=== PATIENT | female | born 1930 | race African-American/Black ===

== ENCOUNTER 2017-06-06 03:53 | Inpatient (IN) | payer OTHER ==
[~2017-06-06] VITALS: Ht 152.4 cm; Wt 67.7 kg
[2017-06-06 04:57] LABS: BASOPHIL % 0.2 % (0-2); PLATELET COUNT 308 x10^3mcL (130-400)
[2017-06-06 04:58] LABS: RED CELL DISTRIBUTION WIDTH 17.5 % (11.5-14.5)
[2017-06-06 04:59] LABS: microscopic required? NO
[2017-06-06 05:01] LABS: ALKALINE PHOSPHATASE 80 U/L (46-116); ALT/SGPT 20 U/L (14-59); AST/SGOT 23 U/L (15-37); BILIRUBIN TOTAL 0.4 mg/dL (0.20-1.00); CALCIUM 9.4 mg/dL (8.5-10.1); CARBON DIOXIDE 30.8 mmol/L (21-32); CHLORIDE SERUM 99 mmol/L (98-107); CHOLESTEROL 168 mg/dL (<200); CREATININE SERUM 0.9 mg/dL (0.6-1.0); GLUCOSE SERUM 100 mg/dL (74-106); HDL CHOLESTEROL 40 mg/dL (40-60); SODIUM SERUM 137 mmol/L (136-145); TOTAL PROTEIN, SERUM 7.3 g/dL (6.4-8.2)
[2017-06-06 05:02] LABS: ALBUMIN 2.5 g/dL (3.4-5.0)
[2017-06-06 05:04] LABS: POTASSIUM SERUM 2.8 mmol/L (3.5-5.1)
[2017-06-06 05:25] LABS: UA SPECIFIC GRAVITY 1.015 (1.005-1.035); urine erythrocyte NEGATIVE (NEGATIVE)
[2017-06-06] MEDS ORDERED: ALBUTEROL SULFAT2 MG PO (06:27)
[2017-06-06] MEDS ORDERED: ALLOPURINOL100 MG PO (06:28)
[2017-06-06] MEDS ORDERED: ALPOS OD (06:29)
[2017-06-06] MEDS ORDERED: ALPRAZOLAM0.25 MG PO (06:31)
[2017-06-06] MEDS ORDERED: ADULT LOW DOSE81 MG PO (06:31)
[2017-06-06] MEDS ORDERED: ATENOLOL25 MG PO (06:31)
[2017-06-06] MEDS ORDERED: DIGOXIN0.125 M1 PO (06:32)
[2017-06-06] MEDS ORDERED: DILTIAZEM HCL30 MG PO (06:33)
[2017-06-06] MEDS ORDERED: PEPCID20 MG PO (06:33)
[2017-06-06] MEDS ORDERED: FUROSEMIDE40 MG PO (06:34)
[2017-06-06] MEDS ORDERED: ISO300 PO (06:34)
[2017-06-06] MEDS ORDERED: MECLIZINE HYDRO25 M1 PO (06:35)
[2017-06-06] MEDS ORDERED: LIDODERM51 TOP (06:35)
[2017-06-06] MEDS ORDERED: VITAMIN B-650 M2 PO (06:36)
[2017-06-06] MEDS ORDERED: METOPROLOL TART25 M1 PO (06:36)
[2017-06-06] MEDS ORDERED: SYMBICORT1 AE3 INH (06:37)
[2017-06-06 07:42] LABS: CHOLESTEROL/HDL RATIO 4.5; MAGNESIUM 1.3 mg/dL (1.8-2.4); PHOSPHOROUS 3.6 mg/dL (2.5-4.9)
[2017-06-06 07:53] LABS: FREE T4 1.33 ng/dL (0.76-1.46); FREE THYROXINE INDEX 3.3 ug/dL (1.4-4.5); T4(THYROXINE) 8.9 ug/dL (4.7-13.3)
[2017-06-06 07:58] LABS: T3 TOTAL 1.14 ng/mL
[2017-06-06 14:28] VITALS: Ht 152.4 cm; Wt 67.7 kg
[2017-06-06 18:11] VITALS: BP 159/50
[2017-06-06 21:42] VITALS: BP 144/56
[2017-06-07 06:14] VITALS: BP 135/62
[2017-06-07 06:27] LABS: BASOPHIL % 0.4 % (0-2); PLATELET COUNT 287 x10^3mcL (130-400)
[2017-06-07 07:18] LABS: CALCIUM 8.9 mg/dL (8.5-10.1); CARBON DIOXIDE 28.1 mmol/L (21-32); CHLORIDE SERUM 101 mmol/L (98-107); CREATININE SERUM 0.7 mg/dL (0.6-1.0); GLUCOSE SERUM 84 mg/dL (74-106); PHOSPHOROUS 3.2 mg/dL (2.5-4.9); POTASSIUM SERUM 3.1 mmol/L (3.5-5.1); SODIUM SERUM 139 mmol/L (136-145)
[2017-06-07 07:54] LABS: RED CELL DISTRIBUTION WIDTH 17.6 % (11.5-14.5)
[2017-06-07 08:53] VITALS: BP 171/54
[2017-06-07 09:46] VITALS: BP 108/78
[2017-06-07 13:55] VITALS: BP 157/58
[2017-06-07 18:00] VITALS: BP 158/53
[2017-06-08 05:32] VITALS: BP 177/59
[2017-06-08 06:12] VITALS: BP 135/60
[2017-06-08 06:26] LABS: CALCIUM 8.7 mg/dL (8.5-10.1); CARBON DIOXIDE 28.5 mmol/L (21-32); CHLORIDE SERUM 102 mmol/L (98-107); CREATININE SERUM 0.7 mg/dL (0.6-1.0); GLUCOSE SERUM 85 mg/dL (74-106); MAGNESIUM 1.5 mg/dL (1.8-2.4); PHOSPHOROUS 2.9 mg/dL (2.5-4.9); POTASSIUM SERUM 3.1 mmol/L (3.5-5.1); SODIUM SERUM 139 mmol/L (136-145)
[2017-06-08 06:48] LABS: BASOPHIL % 0.3 % (0-2); PLATELET COUNT 281 x10^3mcL (130-400)
[2017-06-08 06:53] LABS: RED CELL DISTRIBUTION WIDTH 17.7 % (11.5-14.5)
[2017-06-08 09:39] VITALS: BP 163/57
[2017-06-08 12:49] VITALS: BP 151/55
[2017-06-08 15:17] LABS: RED BLOOD CELLS 3.36 M/mm3 (4.10-5.10)
[2017-06-08 15:36] LABS: IRON 26 ug/dL (50-170); TOTAL IRON BINDING CAPACITY 128 ug/dL (250-450)
[2017-06-08 17:07] VITALS: BP 151/49
[2017-06-08 21:00] VITALS: BP 155/47
[2017-06-09 05:46] VITALS: BP 161/58
[2017-06-09 06:30] LABS: CALCIUM 8.9 mg/dL (8.5-10.1); CARBON DIOXIDE 30.6 mmol/L (21-32); CHLORIDE SERUM 101 mmol/L (98-107); CREATININE SERUM 0.7 mg/dL (0.6-1.0); GLUCOSE SERUM 95 mg/dL (74-106); MAGNESIUM 1.6 mg/dL (1.8-2.4); PHOSPHOROUS 2.4 mg/dL (2.5-4.9); POTASSIUM SERUM 3.1 mmol/L (3.5-5.1); SODIUM SERUM 137 mmol/L (136-145)
[2017-06-09 07:27] LABS: BASOPHIL % 0.3 % (0-2); PLATELET COUNT 286 x10^3mcL (130-400)
[2017-06-09 07:28] LABS: RED CELL DISTRIBUTION WIDTH 17.4 % (11.5-14.5)
[2017-06-09 10:20] VITALS: BP 152/47
[2017-06-09 12:46] VITALS: BP 144/52
[2017-06-09 13:02] VITALS: BP 144/52
[2017-06-09] MEDS ORDERED: LEVOFLOXACIN500 M1 PO (15:28)
[2017-06-09] MEDS ORDERED: FER300 PO (15:33)
[2017-06-09] MEDS ORDERED: LAC PO (15:39)
[2017-06-09 16:02] LABS: CALCIUM 9.1 mg/dL (8.5-10.1); CARBON DIOXIDE 28.5 mmol/L (21-32); CHLORIDE SERUM 100 mmol/L (98-107); CREATININE SERUM 0.8 mg/dL (0.6-1.0); GLUCOSE SERUM 124 mg/dL (74-106); POTASSIUM SERUM 3.5 mmol/L (3.5-5.1); SODIUM SERUM 136 mmol/L (136-145)
== END 2017-06-09 17:05 | DRG 177 ==
LOC: ED 03:53 → DU 05:58
PROVIDERS: Emergency Medicine; ADMIT Family Medicine
DX: J69.0 Pneumonitis due to inhalation of food and vomit (principal); G93.41 Metabolic encephalopathy; E43 Unspecified severe protein-calorie malnutrition; J44.1 Chronic obstructive pulmonary disease with (acute) exacerbation; D68.69 Other thrombophilia; E87.6 Hypokalemia; E11.65 Type 2 diabetes mellitus with hyperglycemia; E11.51 Type 2 diabetes mellitus with diabetic peripheral angiopathy without gangrene; E83.42 Hypomagnesemia; E83.39 Other disorders of phosphorus metabolism; E04.1 Nontoxic single thyroid nodule; E78.5 Hyperlipidemia, unspecified; M10.9 Gout, unspecified; H40.9 Unspecified glaucoma; D63.8 Anemia in other chronic diseases classified elsewhere; K21.9 Gastro-esophageal reflux disease without esophagitis; G89.29 Other chronic pain; M54.5 Low back pain; Z66 Do not resuscitate; Z86.11 Personal history of tuberculosis; Z79.82 Long term (current) use of aspirin; Z68.30 Body mass index [BMI] 30.0-30.9, adult; M62.50 Muscle wasting and atrophy, not elsewhere classified, unspecified site
CPT/HCPCS: 82962; 83880; 84439; 94150; 97110-GP; 97116-GP; 97530-GP; J1956; J3475; J3480; J3490; J7030; J7620; Q0092